=== PATIENT | male | born 1965 | race Caucasian/White ===

== ENCOUNTER → 2017-08-31 | Outpatient (CLI) | payer BC | END | disposition home or self-care (01) | LOC: PCVCIMAG 08:13 | DX: I44.7 Left bundle-branch block, unspecified (principal); I42.9 Cardiomyopathy, unspecified; C18.9 Malignant neoplasm of colon, unspecified; I50.9 Heart failure, unspecified | CPT/HCPCS: 93306 ==

== ENCOUNTER → 2018-12-03 | Outpatient (CLI) | payer BC ==
--- NOTE | 2018-12-03 12:41 | PCVCIMAG ---
APPROVED REPORT Study performed: 12/03/2018 10:57:52 EXAM: Comprehensive 2D, Doppler, and color-flow Echocardiogram Patient Location: Echo lab Status: routine BSA: 2.56 HR: 72 bpmBP: 172/110 mmHg Rhythm: NSR Other Information Study Quality: Adequate Indications Congestive Heart Failure nonischemic cardiomyopathy, LBBB 2D Dimensions IVSd: 9.85 (7-11mm) LVDd: 54.21 mm PWd: 10.03 (7-11mm)Ascending Ao: 34.55 (22-36mm) LVDs: 43.98 (25-40mm) Left Atrium: 39.75 (27-40mm) Aortic Root: 34.11 mm LV Single Plane 4CH: 31.96 % LV Single Plane 2CH: 42.54 % Biplane EF: 38.3 % Volumes Left Atrial Volume (Systole) Single Plane 4CH: 104.05 mLSingle Plane 2CH: 89.50 mL LA ESV Index: 38.00 mL/m2 Aortic Valve AoV Peak Tim.: 1.42 m/s AO Peak Gr.: 8.04 mmHgLVOT Max P.17 mmHg LVOT Max V: 1.02 m/s Mitral Valve IVRT: 121.11 ms Pulmonary Valve PV Peak Tim.: 1.25 m/sPV Peak Gr.: 6.27 mmHg Pulmonary Vein P Vein S: 0.30 m/sP Vein A: 0.27 m/s P Vein D: 0.36 m/sP Vein A Dur.: 124.6 msec P Vein S/D Ratio: 0.83 Tricuspid Valve TR Peak Tim.: 2.43 m/s TR Peak Gr.: 23.63 mmHg Left Ventricle The left ventricle is normal size. There is global hypokinesis of the left ventricle. There is normal left ventricular wall thickness. Left ventricular systolic function is moderately decreased. LVEF is 35-40%. Mild diastolic dysfunction is present (impaired relaxation pattern). Right Ventricle The right ventricle is normal size. The right ventricular systolic function is normal. Atria Left atrium is mildly dilated. The right atrium size is normal. Aortic Valve The aortic valve is normal in structure. Trace aortic regurgitation. There is no aortic valvular stenosis. Mitral Valve The mitral valve is normal in structure. Mild mitral regurgitation. No evidence of mitral valve stenosis. Tricuspid Valve The tricuspid valve is normal in structure. Mild tricuspid regurgitation with PAP of 30 mmHg. Pulmonic Valve The pulmonary valve is normal in structure. Trace pulmonic regurgitation. Great Vessels The aortic root is normal in size. IVC is normal in size and collapses >50% with inspiration. Pericardium There is no pericardial effusion. There is no pleural effusion. <Conclusion> Left ventricular systolic function is moderately decreased. LVEF is 35-40%. Left atrium is mildly dilated. The aortic valve is normal in structure. Trace aortic regurgitation, no stenosis. The mitral valve is normal in structure. Mild mitral regurgitation. Mild tricuspid regurgitation with pulmonary artery pressure of 30 mmHg. There is no pericardial effusion.
== END | disposition home or self-care (01) ==
LOC: PCVCIMAG 11:00
PROVIDERS: ATTEND Internal Medicine
DX: I08.1 Rheumatic disorders of both mitral and tricuspid valves (principal); I50.9 Heart failure, unspecified; I42.9 Cardiomyopathy, unspecified; I44.7 Left bundle-branch block, unspecified
CPT/HCPCS: 93306